=== PATIENT | female | born 1995 | race Caucasian/White ===

== ENCOUNTER 2018-12-14 10:14 | Outpatient (CLI) | payer MEDICAID ==
[~2018-12-14] VITALS: Ht 162.6 cm; Wt 65.3 kg
[~2018-12-14 10:14] MED LIST: IRON1TAB78 PO; PREN1TAB13 PO
[2018-12-14 10:17] VITALS: Ht 162.6 cm; Wt 65.3 kg
[2018-12-14 10:35] VITALS: BP 89/57; PULSE 97; RESP 20
[2018-12-14] MEDS ORDERED: URSODIOL 300 MG CAP ONE (13:07)
[2018-12-14] MEDS ORDERED: ASPIRIN (EC) 81 MG TAB PO ONE (13:07)
[2018-12-14] MEDS: LACTATED RINGER'S 1,000 ML IV SCH ×2 (14:19→16:40)
[2018-12-14] MEDS ORDERED: CEFAZOLIN 2 GM/50 ML (PMX) 50 ML IVPB ONE (14:45)
--- NOTE | 2018-12-14 17:55 | TRIAGE ---
OB Triage Datetime Report Generated by CPN: 12/14/2018 17:55 Datetime: 12/14/2018 16:30 Labor Evaluation Frequency: X4 Monitor Mode: External Duration (sec)2399: 40-60 Quality: Mild Pattern: Normal: <= 5 Contractions in 10 Minutes Resting Tone [place]: Relaxed Heart Rate FHR Baseline Rate: 130 Monitor Mode: External US FHR Baseline Changes: No Baseline Change Variability: Moderate 6-25 bpm Accelerations: 15X15 Decelerations: None Category: Category I Pain Assessment Pain Scale: 0 Pain Presence: None/Denies Pain Type: N/A Pain Goal: 0 Datetime: 12/14/2018 15:30 Labor Evaluation Frequency: X3 Monitor Mode: External Duration (sec)2399: 40-60 Quality: Mild Pattern: Normal: <= 5 Contractions in 10 Minutes Resting Tone [place]: Relaxed Heart Rate FHR Baseline Rate: 130 Monitor Mode: External US FHR Baseline Changes: No Baseline Change Variability: Moderate 6-25 bpm Accelerations: 15X15 Decelerations: None Category: Category I Pain Assessment Pain Scale: 0 Pain Presence: None/Denies Pain Type: N/A Pain Goal: 0 Datetime: 12/14/2018 14:15 Labor Evaluation Frequency: 3-6 Monitor Mode: External Duration (sec)2399: 60-80 Quality: Mild Pattern: Normal: <= 5 Contractions in 10 Minutes Resting Tone [place]: Relaxed Heart Rate FHR Baseline Rate: 130 Monitor Mode: External US FHR Baseline Changes: No Baseline Change Variability: Moderate 6-25 bpm Accelerations: 15X15 Decelerations: None Category: Category I Pain Assessment Pain Scale: 0 Pain Presence: None/Denies Pain Type: N/A Pain Goal: 0 Datetime: 12/14/2018 13:45 Labor Evaluation Frequency: 3-5 Monitor Mode: External Duration (sec)2399: 60-80 Quality: Mild Pattern: Normal: <= 5 Contractions in 10 Minutes Resting Tone [place]: Relaxed Heart Rate FHR Baseline Rate: 130 Monitor Mode: External US FHR Baseline Changes: No Baseline Change Variability: Moderate 6-25 bpm Accelerations: 10X10 Decelerations: None Category: Category I Pain Assessment Pain Scale: 0 Pain Presence: None/Denies Pain Type: N/A Pain Goal: 0 Datetime: 12/14/2018 11:30 Labor Evaluation Frequency: X1 Monitor Mode: External Duration (sec)2399: 40 Quality: Mild Pattern: Normal: <= 5 Contractions in 10 Minutes Resting Tone [place]: Relaxed Heart Rate FHR Baseline Rate: 135 Monitor Mode: External US FHR Baseline Changes: No Baseline Change Variability: Moderate 6-25 bpm Accelerations: 15X15 Decelerations: None Category: Category I Pain Assessment Pain Scale: 0 Pain Presence: None/Denies Pain Type: N/A Pain Goal: 0 Vaginal Exam Membrane Status: Intact Datetime: 12/14/2018 11:03 Labor Evaluation Frequency: 0 Monitor Mode: External Heart Rate FHR Baseline Rate: 130 Monitor Mode: External US FHR Baseline Changes: No Baseline Change Variability: Moderate 6-25 bpm Accelerations: 10X10 Decelerations: None Category: Category I Pain Assessment Pain Scale: 0 Pain Presence: None/Denies Pain Type: N/A Pain Goal: 0 Datetime: 12/14/2018 10:32 Assessment Type: Triage Maternal Assessment Level of Consciousness: Keenly Alert, Responsive DTR's/Clonus: DTRs 2+; No Clonus Headache: Denies Blurred Vision: No Respiratory Effort: Unlabored; Regular Rhythm; Equal Expansion Breath Sounds, Left: Clear and Equal Breath Sounds, Right: Clear and Equal Nausea/Vomiting: Denies RUQ Epigastric Pain: Denies Lower Extremities Edema: None Degree: None Upper Extremities Edema: None Degree: None Facial Edema: None Fall Risk Assessment History of Falling: (0) No Secondary Diagnosis: (0) No Ambulatory Aid: (0) Bedrest/Nurse Assist IV Therapy: (0) No Gait: (0) Normal/Bedrest/Immobile Mental Status: (0) Oriented to Own Ability Fall Score: 0 Fall Risk Score Definition: No Risk: No action required Datetime: 12/14/2018 10:31 Monitor Mode: External Monitor Mode: External US Pain Assessment Pain Scale: 0 Pain Presence: None/Denies Pain Type: N/A Pain Goal: 0 Vaginal Exam Membrane Status: Intact Datetime: 12/14/2018 10:25 EGA: 30.3 Datetime: 12/14/2018 10:07 Time of Arrival: 12/14/2018 10:07 Arrived By: Ambulatory Arrived From: Office Chief Complaint: CALF PAIN, S>D Movement: Present Contractions: Denies/Absent Rupture of Membranes: Denies Vaginal Bleeding: None Vaginal Discharge: Denies Recent Sexual Intercouse: Denies Abdominal Trauma: Not Applicable Patient Complaints: Other Time Provider Notified: 12/14/2018 13:18 Provider Notified: DR PEREZ Initial Plan: EFW, DOPPLER
--- NOTE | 2018-12-14 19:20 | PN ---
Triage Information Date/Time Reason for visit: Patient referred from [facility] for further evaluation due to size less than date and bilateral lower extremity cramping Weeks of Gestation 30 weeks and 3 days /Para -0-1-1 Diabetes: none Hypertention: none Objective Vital Signs Date Temp Pulse Resp B/P (MAP) Pulse Ox O2 O2 Flow FiO2 Time Delivery Rate 12/14/18 97.0 97 20 89/57 (68) Room Air 10:35 Heart Rate: 140's Contractions: 6-10 Minutes Apart Results/Medications Results 24 hrs Laboratory Tests Test 12/14/18 10:30 12/14/18 13:43 Urine Color YELLOW Urine Clarity CLOUDY A Urine pH 6.0 Urine Specific Ophelia 1.014 Urine Ketones NEGATIVE Urine Nitrite NEGATIVE Urine Bilirubin NEGATIVE Urine Urobilinogen NEGATIVE Urine Leukocyte Esterase 3+ H Urine Microscopic RBC 3 Urine Microscopic WBC 80 H Urine Squamous Epithelial Cells MANY A Urine Bacteria FEW A Urine Mucus FEW A Urine Hemoglobin NEGATIVE Urine Glucose 1+ H Urine Total Protein NEGATIVE Fibronectin NEGATIVE Disposition: Discharge Assessment/Plan 23 years old -0-1-1 with single intrauterine at 30 weeks and 3 days with YAQUELIN of 02/19/2019 referred by primary OB for size less than date bilateral lower extremity cramping. She states good movement. She denies nausea, vomiting, shortness of breath, chest pain, headache, visual changes, vag inal bleeding or LOF. -FHR: No sign of metabolic acidosis- Category I -Contractions: Initially she had contraction every 4-6 minutes which resolved after IV hydration -Transvaginal ultrasound performed, cervical length 4.3 cm with some funneling -SVE: Closed/thick/high/ceph/intact -Urine analysis performed, 83 white BC, positive with leukocyte Estrace. Urine culture with sensitivity ordered. She received Ancef 2 g in triage. Prescription for Macrobid 100 mg every 12 hours also given. I strongly recommend increase fluid intake and follow-up with her primary OB in 2 days to review urine culture and sensitivity results -Patient discussed with Dr. Hoskins who recommend discharge home with follow-up [facility] ultrasound -Symptoms and sign of labor, preeclampsia, kick count discussed with patient, she voiced understanding. All of her questions answered. -Patient was discharged home in stable condition with the appropriate discharge instructions provided. I would like patient to have close follow-up with her primary physician or outpatient clinic in 1-2 days or return to triage for worsening symptoms or any other urgent concerns. NATHANAEL PEREZ Dec 14, 2018 19:20
== END 2018-12-14 17:49 | disposition home or self-care (01) ==
LOC: L-D 10:14 → OBT 10:14 → L-D 17:38 → OBT 17:49
PROVIDERS: ATTEND Obstetrics & Gynecology
DX: O26.843 Uterine size-date discrepancy, third trimester (principal); O62.9 Abnormality of forces of labor, unspecified; Z3A.30 30 weeks gestation of pregnancy
CPT/HCPCS: 36415; 76815; 76818; 76820; 81001; 82731; 87086; 93970; 96360; 96361; J0690; J7120; Z7500; Z7610; G0463